=== PATIENT | male | born 1925 | race Caucasian/White ===

== ENCOUNTER 2016-12-16 10:47 | Emergency (ER) | payer MEDICARE, BC ==
--- NOTE | 2016-12-16 11:56 | Emergency Department Record ---
History of Present Illness - General Chief complaint: Extremity Problem Stated complaint: RT LOWER LEG SWOLLEN Time Seen by Provider: 12/16/16 11:40 Mode of Arrival: Ambulatory - History of Present Illness Initial comments: patient here with son and daughter in law and his legs are numb and visiting nurse saw him today and was concerned about the warmth of his right leg. No redness and he has hyperpigmentation of the high leg from chronic venous stasis and he has a pedal pulse in the feet. the numbness in his feet going on for 3 weeks. Onset/Timin -: Week(s) Location: Right, Lower Leg History of Same: Yes Radiation: None Consistency: Constant Improves with: Nothing Worsens with: Walking Associated Symptoms: Denies other symptoms - Related Data Home Medications Medication Instructions Recorded Confirmed Last Taken Furosemide [Furosemide] 20 mg PO DAILY 03/03/14 12/16/16 04/01/16 Alendronate Sodium 70 mg PO WEEKLY 04/01/16 12/16/16 04/01/16 Colchicine [Colcrys] 0.6 mg PO ASDIR 04/01/16 12/16/16 04/01/16 Memantine HCl [Namenda Xr] 28 mg PO DAILY 04/01/16 12/16/16 04/01/16 Tiotropium [place] [Spiriva] 1 tab PO ASDIR 04/01/16 12/16/16 04/01/16 Acetaminop W/ Codeine 300/30Mg 1 tab PO ASDIR PRN 12/16/16 12/16/16 Unknown [Tylenol with Codeine #3] Aspirin [Aspirin EC] 81 mg PO DAILY 12/16/16 12/16/16 Unknown Carvedilol [Carvedilol] 6.25 mg PO DAILY 12/16/16 12/16/16 Unknown Febuxostat [Uloric] 40 mg PO DAILY 12/16/16 12/16/16 Unknown Levothyroxine Sodium [Synthroid] 50 mcg PO DAILY 12/16/16 12/16/16 Unknown Lisinopril 20 mg PO DAILY 12/16/16 12/16/16 Unknown Lisinopril [Lisinopril] 10 mg PO QHS 12/16/16 12/16/16 Unknown Warfarin Sodium [Coumadin] 6 mg PO DAILY 12/16/16 12/16/16 Unknown Allergies Allergy/AdvReac Type Severity Reaction Status Date / Time albuterol Allergy Intermediate HYPERSENSIT Verified 04/01/16 14:29 IVITY Anesthetics - Amide Type Allergy Intermediate HYPERSENSIT Verified 04/01/16 14: 29 IVITY Beta-Blockers Allergy Intermediate SWELLING Verified 04/01/16 14:29 (Beta-Adrenergic Bloc (GENERAL) Calcium Channel Blocking Allergy Intermediate SWELLING Verified 04/01/16 14:29 Agents-Dih (GENERAL) lidocaine Allergy Intermediate RASH Verified 04/01/16 14:29 nifedipine Allergy Intermediate DIZZINESS Verified 04/01/16 14:29 propranolol Allergy Intermediate SWELLING Verified 04/01/16 14:29 (GENERAL) aspirin AdvReac Intermediate HYPERSENSIT Verified 04/01/16 14:29 IVITY morphine AdvReac ALTERED Verified 04/01/16 14:29 MENTAL STATUS Travel Screening - Travel/Exposure Within Last 30 Days Have you traveled within the last 30 days?: No Review of Systems Reviewed: No additional complaints except as noted below Constitutional: Reports: As per HPI. Denies: Chills, Fever, Malaise, Night sweats, Weakness, Weight change Eyes: Reports: As per HPI. Denies: Eye discharge, Eye pain, Photophobia, Vision change ENT: Reports: As per HPI. Denies: Congestion, Dental pain, Ear pain, Epistaxis , Hearing loss, Throat pain Respiratory: Reports: As per HPI. Denies: Cough, Dyspnea, Hemoptysis, Stridor, Wheezes Cardiovascular: Reports: As per HPI. Denies: Arrhythmia, Chest pain, Dyspnea on exertion, Edema, Murmurs, Orthopnea, Palpitations, Paroxysmal nocturnal dyspnea, Rheumatic Fever, Syncope Endocrine: Reports: As per HPI. Denies: Fatigue, Heat or cold intolerance, Polydipsia, Polyuria Gastrointestinal: Reports: As per HPI. Denies: Abdominal pain, Constipation, Diarrhea, Hematemesis, Hematochezia, Melena, Nausea, Vomiting Genitourinary: Reports: As per HPI. Denies: Dysuria, Frequency, Hematuria, Incontinence, Retention, Testicular pain, Testicular mass, Urgency Musculoskeletal: Reports: As per HPI. Denies: Arthralgia, Back pain, Gout, Joint swelling, Myalgia, Neck pain Skin: Reports: As per HPI. Denies: Bruising, Change in color, Change in hair/ nails, Lesions, Pruritus, Rash Neurological: Reports: As per HPI. Denies: Abnormal gait, Confusion, Headache, Numbness, Paresthesias, Seizure, Tingling, Tremors, Vertigo, Weakness Psychiatric: Reports: As per HPI. Denies: Anxiety, Auditory hallucinations, Depression, Homicidal thoughts, Suicidal thoughts, Visual hallucinations Hematological/Lymphatic: Reports: As per HPI. Denies: Anemia, Blood Clots, Easy bleeding, Easy bruising, Swollen glands Past Medical History - SOCIAL HISTORY Smoking Status: Former smoker Alcohol Use: None Drug Use: None - RESPIRATORY Hx Respiratory Disorders: Yes Hx COPD: Yes - CARDIOVASCULAR Hx Cardio Disorders: Yes Hx Cardiac Cath: Yes Hx CHF: Yes Hx Heart Attack: Yes Hx Hypertension: Yes Comment:: hyperlipidemia/varicose veins/atherosclerosis - NEURO Hx Neuro Disorders: No - GI Hx GI Disorders: No - Hx Genitourinary Disorders: No - ENDOCRINE Hx Endocrine Disorders: No - MUSCULOSKELETAL Hx Musculoskeletal Disorders: Yes Hx Arthritis: Yes (gout) - PSYCH Hx Psych Problems: No - HEMATOLOGY/ONCOLOGY Hx Hematology/Oncology Disorders: No Family Medical History Any Significant Family History?: No Course Vital Signs 12/16/16 11:16 Temperature 97.4 F L Pulse Rate 61 Respiratory 20 Rate Blood Pressure 136/81 Pulse Ox 98 Medical Decision Making - Lab Data Result diagrams: 12/16/16 12:02 Disposition Clinical Impression: Warfarin-induced coagulopathy Venous stasis dermatitis Qualifiers: Laterality: right Qualified Code(s): I87.2 - Venous insufficiency (chronic) ( peripheral) Condition: (1) Good Instructions: Stasis Dermatitis (ED) Additional Instructions: elevate legs avoid salt. follow up with visiting physicians in one week. stop coumadin till directed by visiting physicians. Forms: Patient Portal Access Time of Disposition: 13:00 Quality - Quality Measures Quality Measures: N/A - Blood Pressure Screening Blood Pressure Classification: Pre-Hypertensive BP Reading Systolic Measurement: 136 Diastolic Measurement: 81 Screening for High Blood Pressure: < Pre-Hypertensive BP, F/U Documented > [ [id number]] Pre-Hypertensive Follow-up Interventions: Referral to alternative/primary care provider.
[2016-12-16 12:07] LABS: BASO % 0.6 % (0-6); EOS % 7.6 % (0-6); GRAN % 57.2 % (47-80); HEMATOCRIT 41.3 % (42.0-52.0); HEMOGLOBIN 13.6 gm/dl (14.0-18.0); LYMPH % 26.2 % (16-45); MEAN CORPUSCULAR HGB CONC 32.9 g/dl (32-36); MEAN PLATELET VOLUME 9.9 fl (7.4-10.4); MONO % 8.4 % (0-9); PLATELET COUNT 101 K/uL (130-400); RED BLOOD COUNT 4.09 M/uL (4.40-5.70); RED CELL DISTRIBUTION WIDTH 15.2 % (11.5-14.5); WHITE BLOOD COUNT W/O DIFF 4.7 K/uL (4.2-12.2)
[2016-12-16 12:08] LABS: MEAN CORPUSCULAR HEMOGLOBIN 33.2 pg (27-33)
[2016-12-16 12:18] LABS: INR 4.14; PROTHROMBIN TIME (PATIENT) 45.4 SECONDS (9.5-12.1)
== END 2016-12-16 13:22 | disposition home or self-care (01) ==
LOC: ER 10:47
DX: D68.8 Other specified coagulation defects (principal); I87.2 Venous insufficiency (chronic) (peripheral); R20.0 Anesthesia of skin
CPT/HCPCS: 85025; 85610; 99283